=== PATIENT | male | born 1975 | race Two or more races ===

== ENCOUNTER 2017-04-04 01:01 | Emergency (ER) | payer SELFPAY ==
[2017-04-04 01:23] VITALS: BMI 32.2
[2017-04-04 01:27] VITALS: BP 137/84; PULSE 77; RESP 16; TEMP 98.7; O2SAT 100
--- NOTE | 2017-04-04 01:28 | ED PDOC ---
HPI: Psych/Substance Abuse Time Seen by Provider: 04/04/17 01:06 Chief Complaint (Nursing): Alcohol Ingestion Chief Complaint (Provider): ETOH History Per: Patient Additional Complaint(s): Patient brought in for evaluation of alcohol intoxication. Past Medical History Reviewed: Nursing Documentation, Vital Signs Vital Signs: Last Vital Signs Temp 98.7 F 04/04/17 01:23 Pulse 77 04/04/17 01:23 Resp 16 04/04/17 01:23 BP 137/84 04/04/17 01:23 Pulse Ox 100 04/04/17 01:23 - Medical History PMH: No Chronic Diseases - Surgical History Surgical History: No Surg Hx - Family History Family History: States: Unknown Family Hx - Social History Alcohol: Social - Allergies Allergies/Adverse Reactions: Allergies Allergy/AdvReac Type Severity Reaction Status Date / Time No Known Allergies Allergy Verified 04/04/17 01:22 Review of Systems ROS Statement: Except As Marked, All Systems Reviewed And Found Negative Physical Exam - Reviewed Nursing Documentation Reviewed: Yes Vital Signs Reviewed: Yes - Physical Exam Appears: Positive for: Well, Non-toxic, No Acute Distress Head Exam: Positive for: ATRAUMATIC, NORMAL INSPECTION, NORMOCEPHALIC Skin: Positive for: Normal Color, Warm, DRY Eye Exam: Positive for: EOMI, Normal appearance, PERRL ENT: Positive for: Normal ENT Inspection Neck: Positive for: Normal, Painless ROM Cardiovascular/Chest: Positive for: Regular Rate, Rhythm Respiratory: Positive for: CNT, Normal Breath Sounds Gastrointestinal/Abdominal: Positive for: Normal Exam, Bowel Sounds, Soft Back: Positive for: Normal Inspection Extremity: Positive for: Normal ROM Neurologic/Psych: Positive for: Alert, Oriented - ECG O2 Sat by Pulse Oximetry: 100 Medical Decision Making Medical Decision Making: Pt monitored in ED overnight. arousable to verbal stimuli ETOH 289 Disposition - Clinical Impression Clinical Impression: Alcohol ingestion - Patient ED Disposition Is Patient to be Admitted: No - Disposition Disposition: Routine/Home Disposition Time: 05:16 Condition: STABLE Instructions: Alcohol Intoxication (ED) Forms: 248 [employer] ([place])
== END 2017-04-04 06:18 | disposition home or self-care (01) ==
LOC: H.ER 01:01
DX: F10.129 Alcohol abuse with intoxication, unspecified (principal)
CPT/HCPCS: 82948; 99283; G0480